=== PATIENT | female | born 1950 | race American Indian/Alaskan Native ===

== ENCOUNTER 2018-01-07 13:08 | Outpatient (CLI) | payer MEDICARE ==
--- NOTE | 2018-01-07 16:39 | XRay Report ---
XRAY RIGHT HIP TWO VIEWS: 01/07/18 13:08:00 CLINICAL: Right hip pain. History of endometrial cancer. COMPARISON: CT Pelvis 05/02/15 FINDINGS: The right hip has become markedly abnormal since the comparison CT pelvis.Partial lysis of the right femoral head has occurred with flattening and irregularity of the femoral head. The margins are sclerotic and there are new lucencies in the acetabulum as well as the proximal femur. Superior subluxation of the hip on the AP view and complete loss of the joint space. Mild arthritis of the left hip. No fracture. The SI joints are normal. Normal soft tissues. 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 These changes suggest avascular necrosis as the primary cause. However, metastatic disease as a possible contributing factor is a consideration. Consider MRI of the hip without and with contrast.
== END 2018-01-07 13:09 | disposition home or self-care (01) ==
LOC: SPVIMAG 13:08
PROVIDERS: ATTEND Orthopaedic Surgery Sports Medicine
DX: S73.001A Unspecified subluxation of right hip, initial encounter (principal); M16.0 Bilateral primary osteoarthritis of hip; X58.XXXA Exposure to other specified factors, initial encounter; Y93.89 Activity, other specified; Y92.89 Other specified places as the place of occurrence of the external cause; Y99.8 Other external cause status